=== PATIENT | female | born 2000 | race Caucasian/White ===

== ENCOUNTER → 2021-11-19 17:14 | Observation (INO) ==
[2021-11-19 16:16] LABS: Bacteria,Urine Few per hpf (None-Few); Bilirubin,Urine Negative (Negative); Blood,Urine Negative (Negative); Clarity,Urine Turbid (Clear); Color,Urine Yellow (Yellow); Glucose,Urine (UA) Normal (Normal); Ketones,Urine Trace mg/dL (Negative); Leukocyte Esterase,Urine Moderate (Negative); Mucus,Urine Few per lpf (None-Few); Nitrite,Urine Negative (Negative); Protein,Urine 30 mg/dL (Neg-Trace); RBC,Urine 0-3 per hpf (0-3); Specific Gravity,Urine 1.021 (1.010-1.025); Squamous Epithelial Cell,Urine Moderate per hpf (None-Few); Urobilinogen,Urine Normal (Normal)
[~2021-11-19 17:14] MED LIST: Ringers Solution, Lactated 1,000 ML IVC ONE
== END | disposition home or self-care (01) ==
LOC: 1NENULAB
PROVIDERS: ADMIT Obstetrics & Gynecology; ATTEND Obstetrics & Gynecology

== ENCOUNTER 2021-11-23 04:57 | Inpatient (IN) ==
[2021-11-23] MEDS ORDERED: CeFAZolin 2,000 MG/120 ML BAG IVPB ONE (05:10)
[2021-11-23] MEDS ORDERED: Metoclopramide 10 MG/2 ML VIAL IVP ONE ×2 (05:10→07:30)
[2021-11-23] MEDS ORDERED: Ringers Solution, Lactated 1,000 ML IVC ONE (05:10)
[2021-11-23] MEDS ORDERED: Famotidine 20 MG/2 ML VIAL IVP ONE ×2 (05:10→07:30)
[2021-11-23 05:55] LABS: Basophils % 0.2 %; Eosinophils # 0.1 K/mcL (0.0-0.6); Eosinophils % 1.1 %; Hematocrit 33.2 % (35.3-44.9); Hemoglobin 10.8 g/dL (11.5-15.4); Immature Granulocytes % 0.7 % (0-4); Lymphocytes # 2.3 K/mcL (0.6-4.6); Mean Corpuscular HGB Conc 32.5 g/dL (31.6-35.5); Mean Corpuscular Hemoglobin 29.2 pg (28.0-33.3); Mean Corpuscular Volume 89.7 fL (83.0-100.0); Mean Platelet Volume 8.9 fL (9.4-12.4); Monocytes # 1.5 K/mcL (0.0-1.3); Neutrophils # 8.2 K/mcL (1.6-8.9); Platelet Count 211 K/mcL (140-400); Red Cell Distribution Width 13.7 % (11.5-14.5); White Blood Count 12.3 K/mcL (4.3-11.1)
[2021-11-23] MEDS ORDERED: Bupivacaine/PF 0.75% in Dex 2 ML AMPUL INFILT ONE (07:27)
[2021-11-23] MEDS: Ringers Solution, Lactated 1,000 ML IVC SCH ×3 (07:41→18:33)
[2021-11-23] MEDS ORDERED: Ondansetron 4 MG/2 ML VIAL ONE (07:48)
[2021-11-23] MEDS ORDERED: Ringers Solution, Lactated 1,000 ML ONE (08:32)
[2021-11-23] MEDS: miSOPROStoL 25 MCG TABLET PO PRN ×2 (09:25→13:25)
[2021-11-23] MEDS ORDERED: Ropivacaine/PF 0.2% 20 ML VIAL EP ONE (09:28)
[2021-11-23] MEDS ORDERED: EPHEDrine 50 MG/ML VIAL IVP PRN (09:28)
[2021-11-23] MEDS ORDERED: Ondansetron 4 MG/2 ML VIAL IVP PRN (09:28)
[2021-11-23] MEDS ORDERED: Naloxone 0.4 MG/ML INJ IVP PRN (09:28)
[2021-11-23 10:33] LABS: Amphetamine Screen,Urine Negative ng/mL (Cutoff=1000); Barbiturate Screen,Urine Negative ng/mL (Cutoff=200); Benzodiazepines Screen,Urine Negative ng/mL (Cutoff=200); Cannabinoid Screen,Urine Negative ng/mL (Cutoff = 50); Cocaine Screen,Urine Negative ng/mL (Cutoff= 300); Opiate Screen,Urine Negative ng/mL (Cutoff=300); Phencyclidine Screen,Urine Negative ng/mL (Cutoff=25)
[2021-11-23] MEDS ORDERED: *HR* Nalbuphine 10 MG/ML AMPUL IV PRN (13:24)
[2021-11-23] MEDS ORDERED: miSOPROStoL 25 MCG TABLET PO STA (21:18)
[2021-11-23] MEDS ORDERED: Acetaminophen 325 MG TABLET PO ONE (23:16)
[2021-11-24] MEDS ORDERED: Oxytocin 30 UNIT/503 ML BAG IVC SCH ×4 (02:00→16:44)
[2021-11-24] MEDS: Epidural Premix (fent/bupiv) 110 ML EP SCH ×2 (02:23→15:00)
[2021-11-24] MEDS ORDERED: Acetaminophen IV 1,000 MG/100 ML BAG IVPB ONE (05:41)
[2021-11-24] MEDS ORDERED: Ropivacaine/PF 0.2% 20 ML VIAL ONE ×2 (05:59→09:01)
[2021-11-24] MEDS ORDERED: *HR* FentaNYL (PF) 100 MCG/2 ML VIAL ONE ×2 (05:59→09:01)
[2021-11-24] MEDS ORDERED: Rho Immune Globulin 1,500 UNIT SYRINGE IM PRN ×2 (15:01→16:44)
[2021-11-24] MEDS ORDERED: Lanolin 7 G OINT...G. TP PRN ×2 (15:01→16:44)
[2021-11-24] MEDS ORDERED: Benzocaine/Menthol 56 GM AEROSOL SPRAY TP PRN ×2 (15:01→16:44)
[2021-11-24] MEDS ORDERED: Ondansetron ODT 4 MG TAB.RAPDIS SL PRN ×2 (15:01→16:44)
[2021-11-24] MEDS ORDERED: Acetaminophen 325 MG TABLET PO SCH (15:15)
[2021-11-24] MEDS ORDERED: Ibuprofen 400 MG TABLET PO SCH (18:02)
[2021-11-24] MEDS: Ibuprofen 400 MG TABLET PO SCH (18:57)
[2021-11-24] MEDS: Acetaminophen 325 MG TABLET PO SCH (21:00)
[2021-11-25 07:21] VITALS: BP 127/81; PULSE 86; TEMP 97.9; O2SAT 98
[2021-11-25] MEDS: Ibuprofen 400 MG TABLET PO SCH ×2 (08:17→14:48)
[2021-11-25] MEDS: Acetaminophen 325 MG TABLET PO SCH ×2 (08:18→14:48)
[2021-11-25] MEDS ORDERED: Prenatal Vit/FA 1 EACH TABLET PO SCH ×2 (09:00)
== END 2021-11-25 17:17 | disposition home or self-care (01) | DRG 806 ==
LOC: 1NENULAB 04:57 → 1NENUOBS 11-24 17:23
PROVIDERS: ADMIT Obstetrics & Gynecology; ATTEND Obstetrics & Gynecology